=== PATIENT | male | born 1980 | race Caucasian/White ===

== ENCOUNTER 2016-12-09 20:32 | Emergency (ER) | payer BC, OTHER ==
[~2016-12-09] VITALS: Ht 188 cm; Wt 90.7 kg
[~2016-12-09 20:32] MED LIST: HYDR-971 PO; ORPH100T PO; prozac; seroquel; xanax
[2016-12-09 20:45] VITALS: BP 136/80
[2016-12-09] MEDS ORDERED: HYDR-971 PO (20:59)
[2016-12-09] MEDS ORDERED: DIPHTH,PERTUSS(ACELL),TET TOX 0.5 ML DISP.SYRIN. VAX IM ONE (21:30)
[2016-12-09] MEDS ORDERED: silver sulfADIAZINE 1% CREAM 25GM TUBE. TP ONE (21:30)
[2016-12-09] MEDS ORDERED: HYDROCODONE/APAP 5/325MG TABLET. PO ONE (21:30)
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
== END 2016-12-09 21:30 | disposition home or self-care (01) ==
LOC: ER 20:32
DX: T21.56XA Corrosion of first degree of male genital region, initial encounter (principal); T65.891A Toxic effect of other specified substances, accidental (unintentional), initial encounter; T79.8XXA Other early complications of trauma, initial encounter; F12.10 Cannabis abuse, uncomplicated; Z88.0 Allergy status to penicillin; Z88.8 Allergy status to other drugs, medicaments and biological substances; Y93.89 Activity, other specified; Y92.89 Other specified places as the place of occurrence of the external cause; Y99.8 Other external cause status
CPT/HCPCS: 16020; 90471; 90715; 99284-25

== ENCOUNTER 2019-04-29 07:57 | Emergency (ER) | payer BC, OTHER ==
[~2019-04-29] VITALS: Ht 188 cm; Wt 86.2 kg
[~2019-04-29 07:57] MED LIST changes: +HYDR-3164 PO; -HYDR-971 PO
[2019-04-29] MEDS ORDERED: ASPIRIN 325 MG TABLET PO ONE (08:30)
--- NOTE | 2019-04-29 08:35 | PHYS DOC ---
Past Medical History Past Medical History: Bipolar Past Surgical History: Other Additional Past Surgical Histo: LEFT KNEE, LEFT FOOT, L4,L5 STENOSIS Alcohol Use: Occasionally Drug Use: Marijuana Adult General Chief Complaint Chief Complaint: CHEST WALL PAIN HPI HPI Patient is a 38 year old male with history of bipolar, smoking who presents to the ED today complaining of 4 out of 10 left-sided chest pain only when he takes a deep breath that began 3 days ago. Patient describes the pain as sharp and intermittent. He also states the pain is worse on touching his left chest area. Denies anything specifically relieving the pain. He states he went to urgent care 2 days ago for the same complaints and they were planning to work him up but send him to the ED. He states he was not able to come to the ED right away because his father is ill and he has been helping him. Patient denies any family member dying before the age of 50 with heart attack or any cardiac events. Review of Systems Review of Systems Constitutional: Denies fever or chills [] Eyes: Denies change in visual acuity, redness, or eye pain [] HENT: Denies nasal congestion or sore throat [] Respiratory: Denies cough or shortness of breath [] Cardiovascular: Reports chest pain GI: Denies abdominal pain, nausea, vomiting, bloody stools or diarrhea [] : Denies dysuria or hematuria [] Musculoskeletal: Denies back pain or joint pain [] Integument: Denies rash or skin lesions [] Neurologic: Denies headache, focal weakness or sensory changes [] All other systems were reviewed and found to be within normal limits, except as documented in this note. Current Medications Current Medications Current Medications Medications (Trade) Dose Ordered Sig/Gonzales Start Time Stop Time Status Last Admin Dose Admin Aspirin (Mychal Aspirin) 325 mg 1X ONCE 04/29/19 08:30 04/29/19 08:31 DC 04/29/19 09:23 325 MG Allergies Allergies Allergies Coded Allergies Type Severity Reaction Last Updated Verified Penicillins Allergy Intermediate 12/26/15 Yes divalproex sodium Allergy Intermediate Rash 12/26/15 Yes trazodone Adverse Reaction Intermediate "LONG LASTING ERECTION" 12/26/15 Yes Physical Exam Physical Exam Constitutional: Well developed, well nourished, no acute distress, non-toxic appearance. [] HENT: Normocephalic, atraumatic, bilateral external ears normal, oropharynx moist, no oral exudates, nose normal. [] Eyes: PERRLA, EOMI, conjunctiva normal, no discharge. [] Neck: Normal range of motion, no tenderness, supple, no stridor. [] Cardiovascular:Heart rate regular rhythm, no murmur [] Lungs & Thorax: Bilateral breath sounds clear to auscultation [] Abdomen: Bowel sounds normal, soft, no tenderness, no masses, no pulsatile masses. [] Skin: Warm, dry, no erythema, no rash. [] Back: No tenderness, no CVA tenderness. [] Extremities: No tenderness, no cyanosis, no clubbing, ROM intact, no edema. [] Neurologic: Alert and oriented X 3, normal motor function, normal sensory function, no focal deficits noted. [] Psychologic: Affect normal, judgement normal, mood normal. [] Current Patient Data Vital Signs Vital Signs Date Time Temp Pulse Resp B/P (MAP) Pulse Ox O2 Delivery O2 Flow Rate FiO2 04/29/19 08:03 97.5 75 18 133/83 (100) 96 Room Air 97.5 Lab Values Laboratory Tests Test 04/29/19 09:15 White Blood Count 6.9 x10^3/uL (4.0-11.0) Red Blood Count 4.75 x10^6/uL (4.30-5.70) Hemoglobin 15.2 g/dL (13.0-17.5) Hematocrit 44.2 % (39.0-53.0) Mean Corpuscular Volume 93 fL (79-100) Mean Corpuscular Hemoglobin 32 pg (25-35) Mean Corpuscular Hemoglobin Concent 34 g/dL (31-37) Red Cell Distribution Width 14.5 % (11.5-14.5) Platelet Count 293 x10^3/uL (140-400) Neutrophils (%) (Auto) 67 % (31-73) Lymphocytes (%) (Auto) 22 % (24-48) L Monocytes (%) (Auto) 9 % (0-9) Eosinophils (%) (Auto) 1 % (0-3) Basophils (%) (Auto) 1 % (0-3) Neutrophils # (Auto) 4.6 x10^3/uL (1.8-7.7) Lymphocytes # (Auto) 1.5 x10^3/uL (1.0-4.8) Monocytes # (Auto) 0.6 x10^3/uL (0.0-1.1) Eosinophils # (Auto) 0.1 x10^3/uL (0.0-0.7) Basophils # (Auto) 0.0 x10^3/uL (0.0-0.2) Sodium Level 139 mmol/L (136-145) Potassium Level 3.7 mmol/L (3.5-5.1) Chloride Level 104 mmol/L (98-107) Carbon Dioxide Level 26 mmol/L (21-32) Anion Gap 9 (6-14) Blood Urea Nitrogen 8 mg/dL (8-26) Creatinine 0.8 mg/dL (0.7-1.3) Estimated GFR (Cockcroft-Gault) 108.2 BUN/Creatinine Ratio 10 (6-20) Glucose Level 125 mg/dL (70-99) H Calcium Level 9.1 mg/dL (8.5-10.1) Magnesium Level 1.9 mg/dL (1.8-2.4) Total Bilirubin 0.3 mg/dL (0.2-1.0) Aspartate Amino Transferase (AST) 11 U/L (15-37) L Alanine Aminotransferase (ALT) 22 U/L (16-63) Alkaline Phosphatase 103 U/L (46-116) Creatine Kinase 82 U/L (39-308) Creatine Kinase MB (Mass) 0.6 ng/mL (0.0-3.6) Creatine Kinase MB Relative Index 0.7 % (0-4) Troponin I Quantitative < 0.017 ng/mL (0.000-0.055) PA-Evv-P-Type Natriuretic Peptide 42 pg/mL (0-124) Total Protein 7.3 g/dL (6.4-8.2) Albumin 3.3 g/dL (3.4-5.0) L Albumin/Globulin Ratio 0.8 (1.0-1.7) L Thyroid Stimulating Hormone (TSH) 1.441 uIU/mL (0.358-3.74) Ethyl Alcohol Level < 10 mg/dL (0-10) Laboratory Tests 04/29/19 09:15 Laboratory Tests 04/29/19 09:15 EKG EKG [address] Collado sinus rhythm HR 58 no STEMI[] Radiology/Procedures Radiology/Procedures []PROCEDURE: PORTABLE CHEST 1V EXAM: CHEST 1 VIEW History: Chest pain COMPARISON: None available TECHNIQUE: Single portable radiograph of the chest FINDINGS: The cardiac silhouette is unremarkable. Linear airspace opacity identified in the left lung base likely atelectasis or scarring changes. The costophrenic sulci are clear and well demarcated. . Plate and screw fixation of the left clavicle. IMPRESSION: Linear opacity identified in the left lung base likely atelectasis or scarring. Electronically signed by: Get Garcia MD (04/29/2019 8:46 AM) [id number] DICTATED and SIGNED BY: GET GARCIA MD DATE: 04/29/19 0846 Course & Med Decision Making Course & Med Decision Making Pertinent Labs and Imaging studies reviewed. (See chart for details) This is a 38-year-old male patient who presents to the ED today with left-sided chest pain on palpation as well as deep breaths, symptoms began 3 days ago. Patient was counseled against smoking. Patient's labs are negative for any acute findings, EKG was negative, troponin is normal. Chest x-ray noted atelectasis otherwise no acute findings. Patient refused to give us urine. DC to home. Instructed to follow-up with PCP as well as rn lpn lvn. OTC pain relievers. Dragon Disclaimer Dragon Disclaimer This electronic medical record was generated, in whole or in part, using a voice recognition dictation system. Departure Departure Impression: Primary Impression: Chest pain Additional Impressions: Pleurisy Smoking addiction Disposition: 01 HOME, SELF-CARE Condition: STABLE Referrals: MEAGAN CABEZAS MD (PCP) follow up in one week LAKISHA SILVER MD follow up in one week Patient Instructions: Chest Pain (Nonspecific)-Brief, Pleurisy, [id number] Additional Instructions: You were evaluated in the emergency room for chest pain. Your workup was nega tive for any acute findings. Please take [id number] pain relievers as needed. Please follow-up with your doctor in the course of this week or next week, you can also follow up with the provided rn lpn lvn. Consider smoking addition Problem Qualifiers Primary Impression: Chest pain Chest pain type: unspecified Qualified Codes: R07.9 - Chest pain, unspecified MUTUNGALARRY LIFT SUPERVISOR Apr 29, 2019 08:35
--- NOTE | 2019-04-29 08:49 | RAD ---
EXAM: CHEST 1 VIEW History: Chest pain COMPARISON: None available TECHNIQUE: Single portable radiograph of the chest FINDINGS: The cardiac silhouette is unremarkable. Linear airspace opacity identified in the left lung base likely atelectasis or scarring changes. The costophrenic sulci are clear and well demarcated. . Plate and screw fixation of the left clavicle. IMPRESSION: Linear opacity identified in the left lung base likely atelectasis or scarring. Electronically signed by: Get Garcia MD (04/29/2019 8:46 AM) [id number]
[2019-04-29 09:27] LABS: BASO % 1 % (0-3); EOS # 0.1 x10^3/uL (0.0-0.7); EOS % 1 % (0-3); HEMATOCRIT 44.2 % (39.0-53.0); HEMOGLOBIN 15.2 g/dL (13.0-17.5); LYMPH # 1.5 x10^3/uL (1.0-4.8); LYMPH % 22 % (24-48); MEAN CORPUSCULAR HEMOGLOBIN 32 pg (25-35); MEAN CORPUSCULAR HGB CONC 34 g/dL (31-37); MEAN CORPUSCULAR VOLUME 93 fL (79-100); MONO # 0.6 x10^3/uL (0.0-1.1); MONO % 9 % (0-9); NEUT # 4.6 x10^3/uL (1.8-7.7); NEUT % 67 % (31-73); PLATELET COUNT 293 x10^3/uL (140-400); RED BLOOD COUNT 4.75 x10^6/uL (4.30-5.70); RED CELL DISTRIBUTION WIDTH 14.5 % (11.5-14.5); WHITE BLOOD COUNT 6.9 x10^3/uL (4.0-11.0)
[2019-04-29 09:50] LABS: CALCIUM 9.1 mg/dL (8.5-10.1); CREATININE 0.8 mg/dL (0.7-1.3); GFR 108.2; POTASSIUM 3.7 mmol/L (3.5-5.1)
[2019-04-29 09:54] LABS: ALBUMIN 3.3 g/dL (3.4-5.0); ALBUMIN/GLOBULIN RATIO 0.8 (1.0-1.7); MAGNESIUM 1.9 mg/dL (1.8-2.4); TOTAL BILIRUBIN 0.3 mg/dL (0.2-1.0); TOTAL PROTEIN 7.3 g/dL (6.4-8.2)
--- NOTE | 2019-04-29 11:02 | EKG ---
[facility] [address] [place] [address] Test Date: 2019-04-29 Test Time: 09:05:19 Pat Name: JOSH ROQUE Department: Room: Gender: Gluing Machine Operator: : 1980 Requested By: LARRY BRAXTON Order Number: [id number] Reading MD: Measurements Intervals Bassett Rate: 58 P: 45 MS: 176 QRS: 60 QRSD: 96 T: 62 QT: 388 QTc: 380 Interpretive Statements SINUS RHYTHM OTHERWISE NORMAL ECG RI6.01 No previous ECG available for comparison
[2019-04-29 11:49] VITALS: BP 113/73
== END 2019-04-29 11:53 | disposition home or self-care (01) ==
LOC: ER 07:57
DX: R09.1 Pleurisy (principal); F17.200 Nicotine dependence, unspecified, uncomplicated; F31.9 Bipolar disorder, unspecified; Z88.0 Allergy status to penicillin; Z88.8 Allergy status to other drugs, medicaments and biological substances
CPT/HCPCS: 36415; 71045; 80053; 82553; 83735; 83880; 84443; 84484; 85025; 93005; 99285; G0480

== ENCOUNTER 2020-12-24 16:55 | Emergency (ER) | payer OTHER ==
[~2020-12-24] VITALS: Ht 188 cm; Wt 81.8 kg
[2020-12-24 16:55] VITALS: BP 122/63
--- NOTE | 2020-12-24 17:40 | ED.ADGEN ---
Past Medical History Past Medical History: Alcoholism, Bipolar Past Surgical History: Other Additional Past Surgical Histo: LEFT KNEE, LEFT FOOT, L4,L5 STENOSIS Smoking Status: Current Every Day Smoker Alcohol Use: Heavy Drug Use: Marijuana Social History Narrative: last use 3 weeks ago General Adult EDM: Chief Complaint: ALCOHOL INTOXICATION HPI: HPI: Patient is a 40 year old male who presents to the emergency department via EMS for evaluation after having an ambulance called due to Xanax ingestion while drinking alcohol today. Patient states that he took 6 tablets of his 1 mg Xanax several hours ago and that he drank a pint of vodka today. Patient denies any suicidal or homicidal ideations. Patient states if he was suicidal he would slit his wrists with a knife. Patient does not want to be here and wants to go home. Patient is adamant that he was not trying to hurt himself he denies any pain or complaints at this time. 40-year-old male who came to the emergency department after having an argument with his mother. He had taken Xanax and had been drinking. I spoke with her by phone. He has been having episodes of hearing voices intermittently and has had paranoid behavior looking around the house thinking somebody has been in the house and episodes of insomnia for more than 48 hours. She is wondering whether has been taking his meds. She had an episode where he had a knife in his hand that had pulled out of the coat which he reports is a pocket knife. He handed over to her. He never gestured to hurt himself or her with it. He has intermittently talked to her about wanting to take a train or go to the bus stop and she is unsure if this is a suicidal ideation. She is worried that he would step in front of the train. He has not said that he is going to step in front of the train. He denies suicidal ideation here in the emergency department. He denies homicidal ideation. The patient is able to ambulate on his own. Review of Systems: Review of Systems: Constitutional: Denies fever or chills. [] HENT: Denies nasal congestion or sore throat. [] Respiratory: Denies cough or shortness of breath. [] Cardiovascular: Denies chest pain or edema. [] GI: Denies abdominal pain, nausea, vomiting, or diarrhea. [] Musculoskeletal: Denies back pain or joint pain. [] Integument: Denies rash. [] Neurologic: Denies headache Psychiatric: Denies depression or anxiety. [] Allergies: Allergies: Allergies Coded Allergies Type Severity Reaction Last Updated Verified Penicillins Allergy Intermediate 12/26/15 Yes divalproex sodium Allergy Intermediate Rash 12/26/15 Yes trazodone Adverse Reaction Intermediate "LONG LASTING ERECTION" 12/26/15 Yes Physical Exam: PE: Constitutional: Well developed, well nourished, no acute distress, intoxicated appearance, odor of EtOH. [] HENT: Normocephalic, atraumatic, bilateral external ears normal, nose normal. [] Eyes: PERRLA, EOMI, conjunctiva normal, no discharge. [] Neck: Normal range of motion, no stridor. [] Cardiovascular:Heart rate regular rhythm Lungs & Thorax: Respirations even and unlabored, no retractions, no respiratory distress Skin: Warm, dry, no erythema, no rash. [] Extremities: No cyanosis, ROM intact, no edema. [] Neurologic: Alert and oriented X 3, no focal deficits noted. [] Psychologic: Affect agitated, judgement normal, mood defiant Current Patient Data: Vital Signs: Vital Signs Date Time Temp Pulse Resp B/P (MAP) Pulse Ox O2 Delivery O2 Flow Rate FiO2 12/24/20 16:55 98.4 93 16 122/63 (82) 95 Room Air 98.4 EKG: EKG: [] Heart Score: C/O Chest Pain: No Risk Factors: Risk Factors: DM, Current or recent (<one month) smoker, HTN, HLP, family history of CAD, obesity. Risk Scores: Score 0 - 3: 2.5% MACE over next 6 weeks - Discharge Home Score 4 - 6: 20.3% MACE over next 6 weeks - Admit for Clinical Observation Score 7 - 10: 72.7% MACE over next 6 weeks - Early Invasive Strategies Radiology/Procedures: Radiology/Procedures: [] Course & Med Decision Making: Course & Med Decision Making Pertinent Labs and Imaging studies reviewed. (See chart for details) 1745- Maria Eugenia with the PAT team has assessed the patient. Patient is not suicidal or homicidal. The patient has received substance abuse services at [facility] before and is able and willing to follow up with their services. His psychiatrist is Dr. Maldonado and patient will follow up with him also. A safety plan will be completed and plan to have a police stand by so the patient can go to his home to get his belongings. [] Dragon Disclaimer: Dragon Disclaimer: This electronic medical record was generated, in whole or in part, using a voice recognition dictation system. Departure Departure Impression: Primary Impression: Encounter for medical screening examination Disposition: 01 DC HOME SELF CARE/HOMELESS Condition: STABLE Referrals: MEAGAN CABEZAS MD (PCP) Patient Instructions: Medical Screening Exam Additional Instructions: Follow up at [facility] as discussed with Maria Eugenia, also follow up with your psychiatrist Dr. Maldonado this week. Return to the ER if symptoms worsen. GEOFF PAEZ APRN Dec 24, 2020 17:40 DOT LINDER MD Dec 24, 2020 17:56
== END 2020-12-24 18:00 | disposition home or self-care (01) ==
LOC: ER 16:55
DX: R44.0 Auditory hallucinations (principal); G47.00 Insomnia, unspecified; F10.20 Alcohol dependence, uncomplicated; Y90.9 Presence of alcohol in blood, level not specified; F31.9 Bipolar disorder, unspecified; F41.9 Anxiety disorder, unspecified; F17.200 Nicotine dependence, unspecified, uncomplicated; Z88.0 Allergy status to penicillin; Z88.8 Allergy status to other drugs, medicaments and biological substances
CPT/HCPCS: 99283